=== PATIENT | male | born 1960 | race Caucasian/White ===

== ENCOUNTER 2024-04-20 06:12 | Day surgery (SDC) | payer OTHER, SELFPAY ==
[2024-04-14 07:40] VITALS: BMI 32.1
[2024-04-14 08:40] VITALS: BMI 32.1
[2024-04-20] VITALS (12 sets, daily range): BP systolic 107–144; BP diastolic 65–82; PULSE 59–74; RESP 10–21; TEMP 35.7–36.4; O2SAT 96–100; BMI 32.1
--- NOTE | 2024-04-20 | DI.RAD.S_ITS ---
PROCEDURE: XR HIP W PEL IF DONE LT 2V INDICATIONS: LT TOTAL HIP TECHNIQUE: Multiple spot fluoroscopic intraoperative images of the left hip and pelvis. COMPARISON: [facility] KRYSTA Bryan, XR PELVIS WITH BILATERAL LATERAL HIPS, 02/10/2024, 15:31. FINDINGS: Spot fluoroscopic intraoperative images demonstrate a left total hip arthroplasty with hardware components in expected positions. IMPRESSION: Fluoroscopy was utilized by the ordering provider for intraprocedural guidance. Approved by: Duy Bertrand M.D. on 04/20/2024 at 15:27
--- NOTE | 2024-04-20 06:00 | DI.RAD.S_ITS ---
PROCEDURE: XR HIP W PEL IF DONE LT 2V INDICATIONS: left HUSEYIN TECHNIQUE: AP pelvis and lateral view of the hip acquired. COMPARISON: [facility], KRYSTA, XR HIP W PEL IF DONE LT 2V, 04/20/2024, 8:49. FINDINGS: Bones: Patient is status post left hip arthroplasty, with hardware components in expected positions. The hip joint appears congruent. The visualized bony structures appear intact. Soft tissues: Overlying postoperative changes are noted. No suspicious soft tissue densities. IMPRESSION: Expected post-operative appearance of a hip arthroplasty. Dictated by: Cristian Quinn M.D. on 04/20/2024 at 15:33 Approved by: Cristian Quinn M.D. on 04/20/2024 at 15:33
[2024-04-20] MEDS: ACETAMINOPHEN 325 MG TABLET 975 MG PO (06:58)
[2024-04-20] MEDS: MELOXICAM 7.5 MG TABLET PO (06:59)
[2024-04-20] MEDS: LACTATED RINGERS 1,000 ML 100 ML IV ×4 (07:00→10:47)
--- NOTE | 2024-04-20 07:27 | PM.PREOP ---
Pre-operative Note Interval Note History & Physical reviewed/Exam performed by Physician: Yes Changes to H&P: No
[2024-04-20] MEDS: SCOPOLAMINE 1 PATCH TOP (07:36)
[2024-04-20] MEDS: CEFAZOLIN 2 GM/100 ML PREMIX 100 ML IV ×2 (08:10→17:06)
--- NOTE | 2024-04-20 08:23 | SUR.OPER ---
Patient supine on padded [place] table, both arms on padded arm boards at <90, both legs secured in padded traction boots and positioned per surgeon, padded post at patient's groin, pressure points checked and padded.
[2024-04-20] MEDS: ROPIVACAINE/EPI/CLONIDINE/KET 50 ML SYRINGE INJ (08:30)
[2024-04-20] MEDS: TRANEXAMIC ACID 1,000 MG VIAL 2000 MG INJ (10:01)
--- NOTE | 2024-04-20 10:10 | P.OP_ITS ---
Operative Date/Time/Diagnoses Date of procedure: 04/20/24 Pre-op diagnosis: Left hip osteoarthritis Post-op diagnosis: same Procedure & Clinicians Procedure: Left total hip arthroplasty Same procedure as scheduled: Yes Surgeon: Jb Martin Head Packager: Tabatha Rea Anesthesia Type: Spinal, Sedation and Local Operative Notes Estimated Blood Loss (mL): 250 Procedure in detail: Left Uncemented Direct Anterior Depuy Total Hip Arthroplasty: Implants: * Warren Gription size 60 cup?with +4 liner * Actis femoral stem size 8 high offset? * 36 mm +5 ceramic femoral head? Procedure Summary: This 64-year-old male patient was templated for a size 58 cup and a size 7 stem. He received 1 size larger on both the cup and stem size, likely indicating slight under magnification on his preoperative templating film. Consistent with his large bony anatomy he had high offset so a lateralized liner as well as a high offset stem was utilized. With the +5 head he had a very tight reduction and appeared to have equal leg lengths radiographically when using a long metal bar across the transitional line to account for fluoroscopic distortion on his AP pelvis x-ray. He has right hip arthritis as well and will likely return at some point in the future for a right total hip arthroplasty. I therefore did not trial with downsizing to a +1.5 head as I did not want to end up with the operative side short relative to the nonoperative side given my plans to return for an eventual total hip arthroplasty on that side as well. I was physically unable to dislocate his hip with external rotation following reduction. He has a very muscular body habitus and had significant tightness with external rotation throughout the procedure so a conjoined tendon release was necessary in order to gain access to his femoral canal for broaching. An automated broach impactor was utilized for the broaching process. Procedure in Detail: This patient was seen preoperatively and evaluated for hip pain which was refractory to numerous nonoperative treatment modalities. Their hip pain correlated with radiographic changes demonstrating significant degeneration in the hip joint. The risks and benefits of continued nonoperative management versus operative management were discussed at length and all of the patient?s questions were answered. Additional educational materials providing further details beyond our discussion in clinic were provided via a publicly available patient education video which included the incidence of medical complications associated with total hip arthroplasty, reasons for revision following total hip arthroplasty, and patient satisfaction rates following total hip arthroplasty. That video can be accessed at [email or web address] . With this understanding of the risks inherent to the procedure, the patient elected to move forward with operative management. Following preoperative optimization, the patient was scheduled for surgery. The patient was met in the preoperative holding area the day of the procedure and all questions were answered. The patient?s nares were swabbed with betadine in order to decolonize them from MRSA. Informed consent was signed and the left limb was marked with indelible ink.? The patient was brought back to the operating room where anesthesia was induced. The patient was transferred to the [place] table and all bony prominences were padded. The operative site was prepped and draped in the usual sterile fashion. Prior to incision, tranexamic acid and cefazolin were administered. Operative templating images were displayed demonstrating the anticipated implant sizes and correct operative extremity. A timeout procedure was performed verifying the patient?s identity, medical comorbidities, allergies, relevant medications, anesthesia type and the surgical plan. All present were in agreement. The assistance of a physician salon shampoo assistant was required for positioning, room setup, soft tissue retraction and wound closure. Without this assistance, the procedure would have been significantly more challenging and time consuming.?? A direct anterior approach to the hip was utilized. This was performed with a longitudinal incision through a Heuter interval. The incision was planned 2 cm distal and 2 cm lateral to the ASIS extending towards the lateral patella, in line with the muscle body of the TFL. Following incision, the subcutaneous tissue was dissected while taking care to avoid injury to the lateral femoral cutaneous nerve. The fascia overlying the TFL was identified by dissecting off the overlying fat and identifying perforating vessels to the TFL. The TFL fascia was incised and dissected away from the medial border of the TFL. A cobra retractor was placed over the superior femoral neck between the abductors and the hip capsule and used to reflect the TFL laterally. A [place] self-retainer was then placed in the distal aspect of the wound between the TFL and the rectus femoris. This was tensioned to open up the direct anterior interval and the lateral circumflex vessels were identified and coagulated using electrocautery. The floor of the TFL fascia was incised, exposing the pericapsular fat overlying the hip capsule. A second cobra retractor was placed on the inferior femoral neck. A double-bent soft tissue retractor was placed on the anterior wall of the acetabulum and used to tension the reflected head of rectus femoris, which was then released in order to limit soft tissue tension. A capsulotomy was made in the midline of the anterior hip capsule in line with the femoral neck ending at the vastus tubercle. The double-bent retractor was removed in order to limit the amount of time that a soft tissue retractor remained on the anterior wall and protect the femoral nerve. Tag stitches were placed in the superior and inferior leaflets of the hip capsule. An Oswaldo soft tissue retractor was introduced over the tag stitches and tensioned in the interval between the rectus femoris and the TFL in order to retract and protect those muscles. The cobra retractors were replaced intracapsularly, with one over the superior neck in the pocket created by the base of the greater trochanter and the other on the femoral head. The capsulotomy was extended laterally to the base of the greater trochanter and medially to the lesser trochanter. This required externally rotating the hip. Once the lesser trochanter had been identified, a neck cut was planned according to measurements from preoperative templating. A ruler was cut at the length measured between the superior aspect of the lesser trochanter and the collar of the prosthesis. This line was extended towards the inferior aspect of the latera l cobra retractor to plan a cut which would leave minimal residual femoral neck laterally. The neck was cut at 60 degrees of external rotation along that line. A second cut was performed to remove a large napkin ring and facilitate head extraction. The napkin ring cut and femoral head were removed.?? A broad anterior wall retractor was placed between the labrum and the anterior capsule so that the anterior capsule would prevent capturing and pinching the femoral nerve anteriorly. An additional retractor was placed on the posterior wall. External rotation and traction were applied through the [place] table so that the cut surface of the femoral neck would not restrict access to the acetabulum. The labrum was excised sharply and the pulvinar was excised with electrocautery to limit bleeding from branches of the obturator artery. Acetabular reamers were selected based on preoperative templating and measurements of the excised femoral head. These were introduced into the acetabulum. Fluoroscopy was utilized to replicate a standing AP pelvis radiograph by centering over the pelvis, rotating until there was appropriate symmetry between the obturator foramen, and introducing caudal tilt to match the position of the pubic symphysis relative to the sacrococcygeal junction according to the patient?s anatomy. Fluoroscopy was utilized to ensure appropriate reaming depth. Once satisfied with the reaming depth corresponding to the preoperative template and the pinch fit between the columns, an appropriate sized acetabular cup was selected which would provide 1 mm of press-fit. This cup was introduced and manipulated until appropriate abduction and anteversion angles were obtained with careful attention to appropriate abduction and anteversion angles as evaluated by the position of the cup relative to the anterior and posterior zaidi of the acetabulum and the AP fluoroscopy which recreated the patient?s standing radiograph. The cup was impacted into place. Peripheral osteophytes w ere removed. The acetabular liner was then placed with care to ensure locking of the locking mechanism.? Attention was then turned to the femur. All retractors were removed, traction was released, a retractor was placed in the interval between the hip capsule and the gluteus minimus, and the hip was externally rotated to 90 degrees. Traction was applied through the [place] table to tension the lateral capsule and this was released using electrocautery. Traction was released and a [place] hook was placed posteriorly around the proximal femur at the level of the vastus ridge. The table height was lowered in order to restrict the tension on the anterior structures during hip hyperextension to limit the risk of femoral nerve palsy. With traction off and the hip at 90 degrees of external rotation, the hip was hyperextended and adducted while manually elevating the femur away from the acetabulum with the [place] hook to ensure it would not be caught behind the greater trochanter. An asymmetric retractor was placed over the calcar and a broad double-pronged retractor was placed over the greater trochanter. The tag stitch capturing the lateral leaflet of the capsule was moved to the medial side, leaving the conjoined and piriformis tendons isolated in the face of the greater trochanter. The hip was externally rotated and elevated. A release of the conjoined tendon was necessary in order to obtain adequate exposure for broaching. The canal was opened with an opening broach and a rasp was used to remove cancellous bone. A rongeur was used to remove the residual lateral bone at the base of the greater trochanter to avoid placing the stem in varus. The femur was then broached to the appropriate sized stem yielding good rotational fit and fill of the canal as well as appropriate version of the stem trial. Neck and head trials were placed, all retractors were removed and the hip was returned to neutral abduction and extension. I then reduced the hip. Initial trialing was performed with a size 8 broach, a high offset neck and a +5 head. I initially manually externally rotated the hip and found that I was unable to manually dislocate the hip. It was very tight with external rotation, allowing external rotation to 90?. I then locked the hip in 45 degrees of external rotation and dropped it to the floor with traction off which demonstrated no instability. An AP pelvis fluoroscopic image matching the preoperative standing radiograph with both lesser trochanters visible and both hips in 40 degrees of external rotation demonstrated equal leg lengths and offset. AP and lateral hip fluoroscopic images were obtained to evaluate the broach size which demonstrated good canal fill. The hip was dislocated and I returned to the broaching position. Based on my evaluation during initial trialing I planned to place these definitive implants. The definitive stem was placed and the trunnion was cleaned and dried. I placed a ceramic head onto the trunnion and impacted it into place on the Moeller taper.?? All retractors were removed and the hip was reduced. A dilute mixture of betadine and peroxide was used to bathe the soft tissues during final fluoroscopic assessment. Appropriate component positioning was confirmed on an AP pelvis radiograph with the operative and nonoperative legs in 40 degrees of external rotation, evaluating leg length and offset. Appropriate stem fill was evaluated on AP and lateral hip radiographs. No fractures were identified on these radiographs. There was no hip instability with maximum (90 degrees) external rotation as well as a 45 degree drop test. The hip was copiously irrigated with pulse lavage. The capsule was closed with absorbable interrupted suture. The TFL fascia was closed with barbed suture while carefully protecting the lateral femoral cutaneous nerve from entrapment. A mixture of Ropivacaine, Epinephrine, Clonidine and Toradol was infiltrated throughout the soft tissues. The skin was closed with 2-0 and 3-0 sutures. Surg ical glue was applied and a soft dressing was placed.??The sponge, instrument and needle counts were reported as being correct at the end of the case.??No obvious complications occurred. The patient was transferred from the [place] table back to a stretcher. The patient emerged from anesthesia without difficulty and was taken to the PACU in a stable condition.? Plan for aftercare: * Anterior hip precautions * Weightbearing as tolerated * Aspirin 81 twice per day for DVT prophylaxis * Anticipate discharge home today * Has had issues with postoperative nausea and vomiting in the past so I have ordered him sublingual as well as IV Zofran. If he has vomiting refractory to these medications we could also utilize Reglan * Has an allergy to oxycodone so we will use hydrocodone and ensure that we do not exceed the maximum daily dosage of Tylenol * Change into normal clothes upon arrival on the hospital floor * Mobilize in the halls as much as is logistically possible. If physical therapy is unavailable for mobilization, then patient should mobilize with nursing staff * Multimodal pain regimen with no IV opioids ordered * Apply ice machine to operative hip. Ensure that sufficient ice is in the chamber for the pad to remain cold * Follow up at [facility] in 2 weeks * Detailed postoperative instructions available at [email or web address]
[2024-04-20] MEDS: ACETAMINOPHEN 325 MG TABLET 650 MG PO (12:33)
[2024-04-20] MEDS: TRAMADOL 50 MG TABLET PO ×2 (12:33→17:05)
--- NOTE | 2024-04-20 12:46 | PT.IIE ---
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) Medical History (Last Updated 04/14/24 @ 08:36 by Marybel De Paz RN) Anesthesia complication CAD (coronary artery disease) Colon polyps Dyslipidemia Fatigue GERD (gastroesophageal reflux disease) H/O hiatal hernia Hearing loss HTN (hypertension) Hypothyroid Kidney stones, calcium oxalate RY (obstructive sleep apnea) Osteoarthritis Physical Therapy Inpatient Evaluation/Re-Eval M1 PT/OT-IP Prior Functional Status Start: 04/20/24 12:18 Freq: NEEDED Status: Active Protocol: Document 04/20/24 12:25 MB (Rec: 04/20/24 12:46 MB [id number]) Medical Review Prior Functional Status Medical History Reviewed Yes Diet/Fluid Consistency Regular Communication WNLs Mobility and Gait I, works from home, lives with Activities of Daily Living and IADL's I, drove, has OPPT set-up in [place] Social History Household Members spouse Living Arrangements House Number of Floors (Floors) 3 or More Floors Number of Stairs To Enter/Railing? 2 flatter stairs and no rail to enter Home Environment Standard Height Toilet,Walk in Shower,Built-In Shower Seat Home Equipment Front Wheel Walker Employment Status [employer] Employed M2 PT-IP Current Condition Start: 04/20/24 12:18 Freq: NEEDED Status: Active Protocol: Document 04/20/24 12:25 MB (Rec: 04/20/24 12:46 MB [id number]) Physical Therapy Current Condition Current Condition Evaluation Date 04/20/24 Treatment Diagnosis L anterior HUSEYIN M3 PT-IP Subjective Start: 04/20/24 12:18 Freq: NEEDED Status: Active Protocol: Document 04/20/24 12:25 MB (Rec: 04/20/24 12:46 MB [id number]) Subjective Physical Therapy Visit Type Type Initial Evaluation Visit Start Time 12:25 Visit Stop Time 12:36 Number of MEDICATION AID Visits 0 Physical Therapy Visit Comments Patient Comments Pt is agreeable to try mobility post-op, checking orthostatics Therapy Pain Assessment Pain When Pain Assessed During Mobility Pain Present Pain Present Pain Reported Location Left Hip Intensity 6 M4 PT-IP Mobility and Gait Start: 04/20/24 12:18 Freq: NEEDED Status: Active Protocol: Document 04/20/24 12:25 MB (Rec: 04/20/24 12:46 MB [id number]) PT-Bed Mobility Assessment Rolling Type of Rolling Roll to Left Level of Assist Contact Guard Assistance Supine to Sit Supine to Sit Contact Guard Assistance,1 Person Assistance,Head of Bed Elevated,Bedrails Sit to Supine Sit to Supine Contact Guard Assistance,1 Person Assistance,Head of Bed Elevated,Bedrails Scooting Scooting to Edge of Bed Contact Guard Assistance Scooting Up and Down in Bed Contact Guard Assistance PT-Transfer Assessment Sit to and From Stand Sit to and from Stand Contact Guard Assistance,1 Person Assistance,Use of Upper Extremities Equipment Transfer Assistive Device Gait Belt,Front Wheeled Walker Orthotic/Prosthetic Devices or Brace: No Transfers Transfer Destination Bed Transfer Technique Left side step up to HOB Transfer Ability Level of Assist Contact Guard Assistance,1 Person Assistance,Use of Upper Extremities Comments Mobility Comments Pt with positive orthostatic hypotension with BP and HR in RUE. PT took vitals in hook lying, sitting, and standing and when PT goes back to retrieve from machine, they are not saved. He had at least 25 mmHg systolic drop, was mildly symptomatic and face is whitish. Returned to hook lying and left with nsg addressing pain meds and setting up lunch. Gait Assessment Gait Gait Assistance Required: Contact Guard Assist Distance (Feet) 2 Able to Maintain Weight Bearing Status Yes During Gait Assistive Devices Assistive Device Gait Belt,Front Wheeled Walker Orthotic/Prosthetic Devices or Brace: No Gait Deviations General Gait Pattern Antalgic,Decreased Stride Length,Step-to Gait Factors Limiting Gait Function Factors Limiting Gait Function Decreased Activity Tolerance, Decreased Strength,Pain PT-Balance Assessment Sitting Balance and Reactions Static Sitting Balance Ability Good Dynamic Sitting Balance Ability Good Standing Balance and Reactions Static Standing Balance Ability Good Dynamic Standing Balance Ability Good Device Used RW M5 PT-IP Objective Assessments Start: 04/20/24 12:18 Freq: NEEDED Status: Active Protocol: Document 04/20/24 12:25 MB (Rec: 04/20/24 12:46 MB [id number]) Orientation Orientation/Cognition Level of Alertness Alert Orientation Name,Age,Birthday,Month,Date, Year,Day of Week,Place, Situation Language Function Ability No Deficits Noted Safety Awareness Decreased Safety Awareness Memory Description No Deficits Noted Gross Range of Motion Upper Extremity ROM Assessment Within Functional Limits Lower Extremity ROM Assessment Left Impaired Strength Upper Extremity Strength Assessment Within Functional Limits Lower Extremity Strength Assessment Left Impaired Comments Strength Comments LLE MMT not performed post-op, functional weakness in hip and knee Coordination Assessment Assessment Coordination Comments NT Sensation Assessment Comments Sensation Comments Denies paresthesias Muscle Tone Muscle Tone WNL Yes M6 PT-IP Treatment Start: 04/20/24 12:18 Freq: NEEDED Status: Active Protocol: Document 04/20/24 12:25 MB (Rec: 04/20/24 12:46 [id number]) Physical Therapy Treatment Exercises Exercises Ankle Pumps,Gluteal Sets,Quad Sets,Heel Slides Education Education Provided Precautions,Weight Bearing Status,Post-Op Packet,Safety M7 PT-IP Assessment and Plan Start: 04/20/24 12:18 Freq: NEEDED Status: Active Protocol: Document 04/20/24 12:25 MB (Rec: 04/20/24 12:46 MB [id number]) PT Summary Assessment and Plan Potential Rehabilitation Potential Good Status of Condition at Evaluation Evolving Summary Impairments Pain,ROM,Strength,Balance, Coordination,Bed Mobility, Transfers,Gait,Activity Tolerance Progress Towards Goals Progressing Toward Goals Assessment Summary Pt is a 64 y/o male presenting with 6/10 left hip pain and orthostatic hypotension post- op. Bed mobility, transfer and side stepping today and returned to hook lying with nsg nearby to assist with pain medication and lunch. Recommend up to chair with nsg when BP stabilized and as pt tolerates. Will initiate further gait and stair training if he remains in acute setting as tolerates. Goals Bed Mobility Goal Independent Transfer Goal Independent,Front Wheeled Walker Gait Goal Independent,Front Wheel Walker Gait Distance 100 Other Goals Pt will ascend and descend 2 steps with RW and no more than min A to allow safe home entrance. Days to Meet Goals 3 Frequency of Treatment Other frequency 1-2x/day Treatment Plan Physical Therapy Treatment Plan Bed Mobility Training,Transfer Training,Gait Training, Therapeutic Exercise,Balance Retraining,Post Op Education, Discharge Planning,Hot or Cold Pack,Neuromuscular Re-ed, Coordination Retraining,Manual Therapy Precautions Other Precautions No hyperextension left hip Weight Bearing Status Weight Bearing Status Weight Bear as Tolerated Recommendations To Nursing Amount of Assist Needed 1 Person Assist Discharge Recommendations PT Discharge Recommendations Home with Assistance, Outpatient PT Transportation Needs at Discharge Private Vehicle
--- NOTE | 2024-04-20 13:46 | PM.PN.1 ---
Subjective Subjective Interval history: Patient seen postoperatively. Resting comfortably in bed sitting upright. Just received tramadol. Says it that was effective in managing his pain. Has not had any nausea or vomiting since surgery. Says that he attempted to get up with physical therapy but his blood pressure dropped from a systolic blood pressure of 130 down to 90. He says he was not lightheaded during that episode. On exam he has intact plantar flexion and dorsiflexion of his hallux and ankle with sensation intact to light touch throughout his entire foot. Has intact quadriceps function with the ability to maintain a straight leg raise. His dressing is clean dry and intact. He has some swelling inferior to the incision consistent with a hematoma. We will plan for additional mobilization this afternoon with the intention of discharging him home today. Exam Vital Signs (past 8 hours): - 04/20/24 07:11 04/20/24 10:28 04/20/24 10:35 Temperature 97.4 F L 97.5 F L Pulse Rate 74 67 62 Respiratory Rate 16 18 20 Blood Pressure 144/77 H 107/65 107/70 Pulse Oximetry 99 100 100 Oxygen Delivery Method Room Air Simple Mask Simple Mask Oxygen Flow Rate 8 8 04/20/24 10:41 04/20/24 10:45 04/20/24 10:50 Temperature 97.1 F L Pulse Rate 61 64 63 Respiratory Rate 21 13 14 Blood Pressure 107/72 138/77 116/80 Pulse Oximetry 100 98 98 Oxygen Delivery Method Simple Mask Room Air Room Air Oxygen Flow Rate 8 04/20/24 10:55 04/20/24 11:03 04/20/24 11:20 Temperature 97.1 F L 96.2 F L Pulse Rate 60 61 59 L Respiratory Rate 15 10 L 12 Blood Pressure 131/73 124/82 123/74 Pulse Oximetry 98 99 97 Oxygen Delivery Method Room Air Room Air Oxygen Flow Rate 0 04/20/24 11:50 04/20/24 12:20 04/20/24 13:20 Temperature 96.3 F L 96.7 F L 96.9 F L Pulse Rate 61 62 68 Respiratory Rate 14 12 14 Blood Pressure 128/73 133/70 115/67 Pulse Oximetry 97 98 96 Oxygen Delivery Method Oxygen Flow Rate 0 0 0 Oxygen Delivery Method Room Air Oxygen Flow Rate 0 PFSH Medical History (Updated 04/14/24 @ 08:36 by Marybel De Paz RN) Anesthesia complication HTN (hypertension) Osteoarthritis Kidney stones, calcium oxalate Hearing loss Fatigue H/O hiatal hernia RY (obstructive sleep apnea) Dyslipidemia Hypothyroid Colon polyps GERD (gastroesophageal reflux disease) CAD (coronary artery disease) Surgical History (Updated 04/09/24 @ 14:30 by Katelynn Gilliland RN) History of extraction of renal calculus (2022) History of repair of hiatal hernia (2007) Hx of cholecystectomy 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 Quality VTE Deep Vein Thrombosis/Pulmonary Embolism Present on Admission: No
--- NOTE | 2024-04-20 16:19 | PT.IPTN ---
Current Diagnoses Unilateral primary osteoarthritis, left hip (04/20/24) Surgery Performed Operation Date: 04/20/24 07:45 Actual Procedures p Total Hip Arthroplasty/Anterior Approach(Left) - Jb Martin MD Physical Therapy Treatment Note M2 PT-IP Current Condition Start: 04/20/24 12:18 Freq: NEEDED Status: Active Protocol: Document 04/20/24 12:25 MB (Rec: 04/20/24 12:46 MB [id number]) Physical Therapy Current Condition Current Condition Evaluation Date 04/20/24 Treatment Diagnosis L anterior HUSEYIN M3 PT-IP Subjective Start: 04/20/24 12:18 Freq: NEEDED Status: Active Protocol: Document 04/20/24 15:50 MB (Rec: 04/20/24 16:19 MB [id number]) Subjective Physical Therapy Visit Type Type Treatment Note Visit Start Time 15:50 Visit Stop Time 16:05 Number of REGISTERED RADIATION THERAPIST Visits 0 Physical Therapy Visit Comments Patient Comments Pt is agreeable to mobility, trying step in room and is nearby. Therapy Pain Assessment Pain When Pain Assessed During Mobility Pain Present Pain Present Pain Reported Location Left Hip Scale Used Not rated M4 PT-IP Mobility and Gait Start: 04/20/24 12:18 Freq: NEEDED Status: Active Protocol: Document 04/20/24 15:50 MB (Rec: 04/20/24 16:19 MB [id number]) PT-Bed Mobility Assessment Rolling Type of Rolling Roll to Left Level of Assist Contact Guard Assistance Supine to Sit Supine to Sit Contact Guard Assistance,1 Person Assistance,Bedrails Sit to Supine Sit to Supine Contact Guard Assistance,1 Person Assistance,Bedrails Scooting Scooting to Edge of Bed Contact Guard Assistance Scooting Up and Down in Bed Contact Guard Assistance PT-Transfer Assessment Sit to and From Stand Sit to and from Stand Contact Guard Assistance,1 Person Assistance,Use of Upper Extremities Equipment Transfer Assistive Device Gait Belt,Front Wheeled Walker Orthotic/Prosthetic Devices or Brace: No Transfers Transfer Destination Bed Transfer Technique Ambulation Transfer Ability Level of Assist Contact Guard Assistance,1 Person Assistance,Use of Upper Extremities Comments Mobility Comments Pt with positive orthostatic hypotension with BP and HR in RUE: supine 120/65, 67; standing 99/70, 94; standing 1 ' 107/72, 87 and after gait 123/63, 85. Pt is not very symptomatic. He has a bulge under skin of left thigh below surgical site. Gait Assessment Gait Gait Assistance Required: Contact Guard Assist Distance (Feet) 70 Able to Maintain Weight Bearing Status Yes During Gait Assistive Devices Assistive Device Gait Belt,Front Wheeled Walker Orthotic/Prosthetic Devices or Brace: No Gait Deviations General Gait Pattern Antalgic,Decreased Stride Length,Step-to Gait Factors Limiting Gait Function Factors Limiting Gait Function Decreased Activity Tolerance, Decreased Strength,Pain Comments Gait Comments 12'x1, 70'x1 Stair Climbing Assessment Evaluation Level of Assist On Stairs Contact Guard Assistance,1 Person Assistance Devices Stair Climbing Assistive Devices Front Wheel Walker Technique/Endurance Stair Climbing Direction Ascend and Descend Stair Climbing Technique Step to Step Number of Steps Climbed 1 Stair Climbing Set # Repetitions (reps) 2 Comments Stair Climbing Comments Instructed pt and in stepping up forward and step up with good foot first and sore foot second and step down first with bad foot and then with good foot PT-Balance Assessment Sitting Balance and Reactions Static Sitting Balance Ability Good Dynamic Sitting Balance Ability Good Standing Balance and Reactions Static Standing Balance Ability Good Dynamic Standing Balance Ability Good Device Used RW M5 PT-IP Objective Assessments Start: 04/20/24 12:18 Freq: NEEDED Status: Active Protocol: Document 04/20/24 12:25 MB (Rec: 04/20/24 12:46 MB [id number]) Orientation Orientation/Cognition Level of Alertness Alert Orientation Name,Age,Birthday,Month,Date, Year,Day of Week,Place, Situation Language Function Ability No Deficits Noted Safety Awareness Decreased Safety Awareness Memory Description No Deficits Noted Gross Range of Motion Upper Extremity ROM Assessment Within Functional Limits Lower Extremity ROM Assessment Left Impaired Strength Upper Extremity Strength Assessment Within Functional Limits Lower Extremity Strength Assessment Left Impaired Comments Strength Comments LLE MMT not performed post-op, functional weakness in hip and knee Coordination Assessment Assessment Coordination Comments NT Sensation Assessment Comments Sensation Comments Denies paresthesias Muscle Tone Muscle Tone WNL Yes M6 PT-IP Treatment Start: 04/20/24 12:18 Freq: NEEDED Status: Active Protocol: Document 04/20/24 15:50 MB (Rec: 04/20/24 16:19 MB [id number]) Physical Therapy Treatment Exercises Exercises Ankle Pumps,Gluteal Sets,Quad Sets,Heel Slides M7 PT-IP Assessment and Plan Start: 04/20/24 12:18 Freq: NEEDED Status: Active Protocol: Document 04/20/24 15:50 MB (Rec: 04/20/24 16:19 MB [id number]) PT Summary Assessment and Plan Potential Rehabilitation Potential Good Status of Condition at Evaluation Evolving Summary Impairments Pain,ROM,Strength,Balance, Coordination,Bed Mobility, Transfers,Gait,Activity Tolerance Progress Towards Goals Progressing Toward Goals Assessment Summary Pt progresses with gait and stair training despite ongoing orthostatics this afternoon. Pt states that he is on Lisinopril at home and PT and nsg ed pt and to check his BP before taking at home d /t low BP post-op and orthostasis increasing fall risk. He has a bulge under skin left thigh below incision . He has progressed well enough to d/c home and nearby for training, will d/c acute PT and d/c order is in. Goals Bed Mobility Goal Independent Transfer Goal Independent,Front Wheeled Walker Gait Goal Independent,Front Wheel Walker Gait Distance 100 Other Goals Pt will ascend and descend 2 steps with RW and no more than min A to allow safe home entrance. Days to Meet Goals 3 Frequency of Treatment Frequency Of Treatment Discharge Other frequency 1-2x/day Treatment Plan Physical Therapy Treatment Plan Bed Mobility Training,Transfer Training,Gait Training, Therapeutic Exercise,Balance Retraining,Post Op Education, Discharge Planning,Hot or Cold Pack,Neuromuscular Re-ed, Coordination Retraining,Manual Therapy Precautions Other Precautions No hyperextension left hip Weight Bearing Status Weight Bearing Status Weight Bear as Tolerated Recommendations To Nursing Amount of Assist Needed 1 Person Assist Discharge Recommendations PT Discharge Recommendations Home with Assistance, Outpatient PT Transportation Needs at Discharge Private Vehicle
[2024-04-20] MEDS: IBUPROFEN 600 MG TABLET PO (17:04)
== END 2024-04-20 18:00 | disposition home or self-care (01) ==
LOC: OR 06:14 → AC 06:16
PROVIDERS: PCP Student in an Organized Health Care Education/Training Program; Referring Provider Orthopaedic Surgery Adult Reconstructive Orthopaedic Surgery; Visit Provider Orthopaedic Surgery Adult Reconstructive Orthopaedic Surgery
PROC: (CPT 27130; principal; 2024-04-20 07:45)
DX: M16.0 Bilateral primary osteoarthritis of hip (principal); I25.10 Atherosclerotic heart disease of native coronary artery without angina pectoris; I10 Essential (primary) hypertension; E78.5 Hyperlipidemia, unspecified; Z95.1 Presence of aortocoronary bypass graft
CPT/HCPCS: 27130; 73502; 76000; 97116; 97162; C1776; J0690; J1100; J2250; J2405; J2704